=== PATIENT | male | born 1975 | race Caucasian/White ===

== ENCOUNTER → 2018-11-16 | Emergency (ER) | payer OTHER ==
[~2018-11-16] VITALS: Ht 170.2 cm; Wt 110.7 kg
[~2018-11-16] MED LIST: FENOFIBRATE160 MG; FORTAMET1000 MG; PRINIVIL20 MG
== END | disposition home or self-care (01) ==
LOC: ER 18:13
DX: J11.1 Influenza due to unidentified influenza virus with other respiratory manifestations (principal)

== ENCOUNTER 2023-06-13 00:21 | Emergency (ER) | payer OTHER ==
[~2023-06-13] VITALS: Ht 170.2 cm; Wt 65.8 kg
[2023-06-13] MEDS ORDERED: EZALLOR SPRINKL20 MG (00:39)
[2023-06-13] MEDS ORDERED: JARDIANCE25 MG (00:39)
== END 2023-06-13 01:35 | disposition home or self-care (01) ==
LOC: ER 00:21
DX: R53.81 Other malaise (principal); R00.2 Palpitations